=== PATIENT | female | born 1985 | race Caucasian/White ===

== ENCOUNTER 2017-05-31 20:55 | Emergency (ER) | payer OTHER ==
[~2017-05-31] VITALS: Ht 160 cm; Wt 90.7 kg
[2017-05-31 21:33] VITALS: BP 141/71
[2017-05-31 21:50] LABS: BASO # 0.1 x10^3/uL (0.0-0.2); BASO % 1 % (0-3); EOS % 2 % (0-3); HEMATOCRIT 40.1 % (36.0-47.0); HEMOGLOBIN 13.4 g/dL (12.0-15.5); LYMPH # 3.1 x10^3/uL (1.0-4.8); LYMPH % 31 % (24-48); MEAN CORPUSCULAR HEMOGLOBIN 30 pg (25-35); MEAN CORPUSCULAR HGB CONC 33 g/dL (31-37); MEAN CORPUSCULAR VOLUME 90 fL (79-100); MONO % 5 % (0-9); NEUT % 62 % (31-73); PLATELET COUNT 218 x10^3/uL (140-400); RED BLOOD COUNT 4.46 x10^6/uL (3.50-5.40); RED CELL DISTRIBUTION WIDTH 12.1 % (11.5-14.5); WHITE BLOOD COUNT 10.1 x10^3/uL (4.0-11.0)
[2017-05-31 21:52] LABS: BILIRUBIN,URINE NEGATIVE (NEG); GLUCOSE,URINE NEGATIVE (NEG); NITRITE,URINE NEGATIVE (NEG); PROTEIN,URINE NEGATIVE (NEG-TRACE); UROBILINOGEN,URINE 0.2 mg/dL (0.2 mg/dL)
[2017-05-31 22:04] LABS: CALCIUM 8.5 mg/dL (8.5-10.1); CREATININE 0.9 mg/dL (0.6-1.0); GFR 72.1; POTASSIUM 3.5 mmol/L (3.5-5.1)
[2017-05-31 22:10] LABS: ALBUMIN 3.8 g/dL (3.4-5.0); TOTAL BILIRUBIN 0.6 mg/dL (0.2-1.0); TOTAL PROTEIN 7.5 g/dL (6.4-8.2)
[2017-05-31 22:12] LABS: BACTERIA,URINE MODERATE /HPF (0-FEW); RBC,URINE 0 /HPF (0-2); SQUAMOUS EPITHELIAL CELL,UR MOD /LPF
[2017-05-31] MEDS ORDERED: ONDANSETRON PF 4 MG/2 ML VIAL. IV ONE (23:00)
[2017-05-31] MEDS ORDERED: KETOROLAC 15 MG/ML VIAL. IV ONE (23:00)
[2017-05-31] MEDS ORDERED: HYDROmorphone 2 MG/ML VIAL IV ONE (23:00)
[2017-05-31] MEDS ORDERED: IV NORMAL SALINE 1000ML BAG 1,000 ML IV ONE (23:00)
--- NOTE | 2017-05-31 23:28 | RAD ---
Clinical History: Right upper quadrant pain nausea and vomiting Technique: Sonographic examination of the right upper quadrant of the abdomen was performed and multiple static images were obtained. Comparison: none Findings: The majority of the liver is visualized and appears homogeneous. The liver is enlarged measuring 21 cm length and there is increased echogenicity and attenuation of sound which further limits ultrasound sensitivity for possible solid liver lesion. The common bile duct appears normal and measures 5 mm in diameter. The gallbladder is seen with one nonmobile stone in the neck. The pancreas is not well visualized due to overlying bowel gas . The right kidney appears normal and measures 11 cm in length. Impression: 1. Hepatomegaly. 2. Increased echogenicity and heterogeneity with attenuation of sound is likely fatty infiltration however, hepatocellular disease is possible. Consider a follow-up multiphase MR examination. 3. A single stone is seen in the gallbladder. There is no wall thickening surrounding fluid or tenderness to suggest acute cholecystitis. Electronically signed by: Jabier Jin III, MD (05/31/2017 11:24 PM) [facility]
[2017-05-31] MEDS ORDERED: HYOS0.1265 SL (23:39)
[2017-05-31] MEDS ORDERED: TRAM-48 PO (23:39)
[2017-05-31] MEDS ORDERED: ONDA4TAB10 SL (23:39)
--- NOTE | 2017-05-31 23:39 | PHYS DOC ---
Past Medical History Past Medical History: No Pertinent History Past Surgical History: No Surgical History Alcohol Use: None Drug Use: None Adult General Chief Complaint Chief Complaint: ABDOMINAL PAIN HPI HPI Patient is a 32 year old female who presents here today complaining of right upper quadrant abdominal pain radiating to her back. Patient reports that she's had lower back pain for approximately 3 or 4 month now. Patient reports that the pain in her abdomen side effects 20 7:30 PM. Patient reports pain is been intermittent. Patient denies any history of hypertension diabetes liver longer kidney problems. Patient denies any abdominal surgeries. Patient does not smoke drink or do any drugs. Patient is allergic to Augmentin. Patient's last menstrual period was April 01, 2017. Patient has any fevers shakes chills diaphoresis dysuria frequency or urgency. Patient does endorse nausea vomiting. Patient reports the pain to her back is been her for quite a while however the pain in her abdomen is intermittent. Patient has any melena or bright red blood per rectum. Patient denies any hematochezia. Patient denies any coffee-ground emesis. Has any hematuria. Patient reports no change in pain with meals. Assessment and plan: This is a 32-year-old female who presents here today complaining of right upper quadrant pain and back pain. Patient's labs were all unremarkable. Patient normal CBC chemistry and UA. Patient's ultrasound of her right upper quadrant which revealed a normal appearing gallbladder except for one stone within the gallbladder that was mobile. I discussed results with the patient and that this might be the culprit of the discomfort that she's having her abdomen although I do not feel that this is the cause of her pain. The patient reports that the pain in her abdomen and back are not always related. I have discussed with the patient need to follow-up with her primary care physician in order to get a referral to a customer account specialist for further evaluation of likely cholelithiasis. Patient be discharged home with ibuprofen less than and Zofran. Patient currently feels much improved after the pain medicines that she was given in the ER. Patient was given Toradol Dilaudid and Zofran in the ED as well as IV fluids to hydrate her. She has clinically hemodynamically stable for discharged home on questions of been answered. Family is in agreement with the current plan. Review of Systems Review of Systems Constitutional: Denies fever or chills [] Eyes: Denies change in visual acuity, redness, or eye pain [] HENT: Denies nasal congestion or sore throat [] All other review systems are negative except as documented in the history of present illness portion. Current Medications Current Medications Current Medications Medications (Trade) Dose Ordered Sig/[facility] Start Time Stop Time Status Last Admin Dose Admin Hydromorphone HCl (Dilaudid) 0.5 mg 1X ONCE 05/31/17 23:00 05/31/17 23:01 DC 05/31/17 22:56 0.5 MG Ketorolac Tromethamine (Toradol) 15 mg 1X ONCE 05/31/17 23:00 05/31/17 23:01 DC 05/31/17 22:56 15 MG Ondansetron HCl (Zofran) 4 mg 1X ONCE 05/31/17 23:00 05/31/17 23:01 DC 05/31/17 22:53 4 MG Sodium Chloride 1,000 ml @ 1,000 mls/hr 1X ONCE 05/31/17 23:00 05/31/17 23:52 DC 05/31/17 22:50 1,000 MLS/HR Allergies Allergies Allergies Coded Allergies Type Severity Reaction Last Updated Verified amoxicillin Allergy Intermediate RASH 05/31/17 Yes clavulanic acid Allergy Intermediate RASH 05/31/17 Yes Physical Exam Physical Exam Constitutional: Well developed, well nourished, no acute distress, non-toxic appearance. [] HENT: Normocephalic, atraumatic, bilateral external ears normal, oropharynx moist, no oral exudates, nose normal. [] Eyes: PERRLA, EOMI, conjunctiva normal, no discharge. [] Neck: Normal range of motion, no tenderness, supple, no stridor. [] Cardiovascular:Heart rate regular rhythm, no murmur [] Lungs & Thorax: Bilateral breath sounds clear to auscultation [] Abdomen: Bowel sounds normal, soft, tenderness or right upper quadrant. No rebound or guarding. No Singh sign. Normal active bowel sounds. Patient up with any signs or symptoms that'll be consistent with an acute surgical abdomen. Skin: Warm, dry, no erythema, no rash. [] Back: Patient is tenderness palpation to her T and L-spine. Patient has paravertebral tenderness. Extremities: No tenderness, no cyanosis, no clubbing, ROM intact, no edema. [] Neurologic: Alert and oriented X 3, normal motor function, normal sensory function, no focal deficits noted. [] Psychologic: Affect normal, judgement normal, mood normal. [] Current Patient Data Vital Signs Vital Signs Date Time Temp Pulse Resp B/P (MAP) Pulse Ox O2 Delivery O2 Flow Rate FiO2 05/31/17 22:56 18 97 Room Air 05/31/17 21:33 98.1 65 141/71 (94) 98.1 Lab Values Laboratory Tests Test 05/31/17 20:50 05/31/17 21:29 05/31/17 21:41 POC Urine HCG, Qualitative Hcg negative (Negative) Urine Collection Type Unknown Urine Color Yellow Urine Clarity Clear Urine pH 6.0 Urine Specific Docena 1.010 Urine Protein Negative mg/dL (NEG-TRACE) Urine Glucose (UA) Negative mg/dL (NEG) Urine Ketones (Stick) Negative mg/dL (NEG) Urine Blood Negative (NEG) Urine Nitrite Negative (NEG) Urine Bilirubin Negative (NEG) Urine Urobilinogen Dipstick 0.2 mg/dL (0.2 mg/dL) Urine Leukocyte Esterase Trace (NEG) Urine RBC 0 /HPF (0-2) Urine WBC 5-10 /HPF (0-4) Urine Squamous Epithelial Cells Mod /LPF Urine Bacteria Moderate /HPF (0-FEW) White Blood Count 10.1 x10^3/uL (4.0-11.0) Red Blood Count 4.46 x10^6/uL (3.50-5.40) Hemoglobin 13.4 g/dL (12.0-15.5) Hematocrit 40.1 % (36.0-47.0) Mean Corpuscular Volume 90 fL (79-100) Mean Corpuscular Hemoglobin 30 pg (25-35) Mean Corpuscular Hemoglobin Concent 33 g/dL (31-37) Red Cell Distribution Width 12.1 % (11.5-14.5) Platelet Count 218 x10^3/uL (140-400) Neutrophils (%) (Auto) 62 % (31-73) Lymphocytes (%) (Auto) 31 % (24-48) Monocytes (%) (Auto) 5 % (0-9) Eosinophils (%) (Auto) 2 % (0-3) Basophils (%) (Auto) 1 % (0-3) Neutrophils # (Auto) 6.2 x10^3uL (1.8-7.7) Lymphocytes # (Auto) 3.1 x10^3/uL (1.0-4.8) Monocytes # (Auto) 0.5 x10^3/uL (0.0-1.1) Eosinophils # (Auto) 0.2 x10^3/uL (0.0-0.7) Basophils # (Auto) 0.1 x10^3/uL (0.0-0.2) Sodium Level 141 mmol/L (136-145) Potassium Level 3.5 mmol/L (3.5-5.1) Chloride Level 103 mmol/L (98-107) Carbon Dioxide Level 28 mmol/L (21-32) Anion Gap 10 (6-14) Blood Urea Nitrogen 10 mg/dL (7-20) Creatinine 0.9 mg/dL (0.6-1.0) Estimated GFR (Cockcroft-Gault) 72.1 BUN/Creatinine Ratio 11 (6-20) Glucose Level 116 mg/dL (70-99) H Calcium Level 8.5 mg/dL (8.5-10.1) Total Bilirubin 0.6 mg/dL (0.2-1.0) Aspartate Amino Transferase (AST) 32 U/L (15-37) Alanine Aminotransferase (ALT) 65 U/L (14-59) H Alkaline Phosphatase 76 U/L (46-116) Total Protein 7.5 g/dL (6.4-8.2) Albumin 3.8 g/dL (3.4-5.0) Albumin/Globulin Ratio 1.0 (1.0-1.7) Lipase 174 U/L (73-393) Laboratory Tests 05/31/17 21:41 Laboratory Tests 05/31/17 21:41 EKG EKG [] Radiology/Procedures Radiology/Procedures [] Course & Med Decision Making Course & Med Decision Making Pertinent Labs and Imaging studies reviewed. (See chart for details) [] Dragon Disclaimer Dragon Disclaimer This electronic medical record was generated, in whole or in part, using a voice recognition dictation system. Departure Departure Impression: Primary Impression: Abdominal pain Additional Impression: Biliary colic Disposition: HOME, SELF-CARE Condition: IMPROVED Referrals: NO PCP (PCP) Patient Instructions: Abdominal Pain (Nonspecific), Biliary Colic Additional Instructions: Follow-up with her doctor for referral to see a customer account specialist to further evaluate your gallbladder disease. Scripts Ondansetron (ZOFRAN ODT) 4 Mg Tab.rapdis 1 TAB SL Q6HRS Y for NAUSEA, #12 TAB Prov: PASQUALE MENDENHALL MD 05/31/17 Tramadol Hcl (ULTRAM) 50 Mg Tablet 1 TAB PO Q6HRS, #14 TAB Prov: PASQUALE MENDENHALL MD 05/31/17 Hyoscyamine Sulfate (LEVSIN-SL) 0.125 Mg Tab.subl 0.125 MG SL Q6-8HRS Y for abdominal cramps, #10 Prov: PASQUALE MENDENHALL MD 05/31/17 Problem Qualifiers PASQUALE MENDENHALL MD May 31, 2017 23:39
== END 2017-05-31 23:45 | disposition home or self-care (01) ==
LOC: ER 20:55
DX: K80.50 Calculus of bile duct without cholangitis or cholecystitis without obstruction (principal); Z88.1 Allergy status to other antibiotic agents; Z88.8 Allergy status to other drugs, medicaments and biological substances
CPT/HCPCS: 36415; 76705; 80053; 81001; 81025; 83690; 85027; 87086; 96361; 96374; 96375; 99285; J1170; J1885; J2405; J7030